=== PATIENT | male | born 2000 | race Caucasian/White ===

== ENCOUNTER 2023-01-20 16:06 | Emergency (ER) | payer BC ==
[~2023-01-20] VITALS: Ht 190 cm; Wt 92.0 kg
--- NOTE | 2023-01-20 16:28 | ED EENT ---
History of Present Illness General Chief Complaint: Ear Problems Stated Complaint: RT EAR PAIN Nursing Triage Note: PT STATES HAS R EAR PAIN WAS SENT TO ED BY [facility], HAS HAD TORDOL SHOT. PT HAS TUBE IN R EAR SEPTEMBER 17 STATES HAD INFECTION THAT COULD NOT BE TREATED W ANTIBIOTIC Source: patient Exam Limitations: no limitations History of Present Illness Date Seen by Provider: Jan 20, 2023 Time Seen by Provider: 16:26 Initial Comments Patient is a 22-year-old male who presents ED with right ear pain. This started last night. Pain is severe. Pain seems to be worse when he lays on the right side or moves his head side to side. He does get some improvement when he is sits up. Was seen at the clinic today and received a Toradol shot and was recommended come to ED if symptoms worsen. Patient had a tube placed in August. History of ear infections. Denies of any drainage, fever, headache, dizziness, visual changes, nausea, vomiting, diarrhea, cough. Patient had surgery on his debridements and nasal septum when he had his right tympanostomy placed in August. Allergies and Home Medications Allergies Coded Allergies: No Known Drug Allergies (Unverified , 01/20/23) Patient Home Medication List Home Medication List Reviewed: Yes Amoxicillin/Potassium Clav (Amox Tr-K Clv 875-125 mg Tab) 875 Mg-125 Mg Tablet, 1 EACH PO BID Prescribed by: LELE OKEEFE on 01/20/231641 Ciprofloxacin HCl/Dexameth (Ciproflox-Dexameth Otic Susp) 0.3 %-0.1 % Drops.susp, 4 DROPS OT BID Prescribed by: LELE OKEEFE on 01/20/231641 Hydrocodone/Acetaminophen (Hydrocodone-Acetamin 5-325 mg) 5 Mg-325 Mg Tablet, 1 TAB PO Q4H PRN for PAIN-MODERATE (5-7) Prescribed by: LELE OKEEFE on 01/20/231641 Review of Systems Review of Systems Constitutional: No chills, No diaphoresis Eyes: Denies Blurred Vision, Denies Drainage, Denies Decreased Acuity Ears: Denies Dizziness; Pain; Denies Clear Discharge, Denies Purulent Discharge Nose: denies clots, denies congestion Mouth: denies clots, denies loose teeth Throat: denies pain, denies swelling, denies neck stiffness Respiratory: No cough, No dyspnea on exertion Cardiovascular: No chest pain Gastrointestinal: No abdominal pain, No diarrhea, No nausea, No vomiting Musculoskeletal: No back pain, No gout All Other Systems Reviewed Negative Unless Noted: Yes Past Nymluyi-Rgjatm-[id number] Hx Patient Social History Tobacco Use?: No Substance use?: No Alcohol Use?: No Pt feels they are or have been: No Immunizations Up To Date First/Initial COVID19 Vaccinat: YES Second COVID19 Vaccination Gil: YES Past Medical History Surgery/Hospitalization HX: R EAR TUBE Physical Exam Vital Signs Vital Signs - First Documented 01/20/23 16:10 Temp 36.5 Pulse 52 Resp 18 B/P (MAP) 145/88 (107) Pulse Ox 100 Height, Weight, BMI Height: '" Weight: lbs. oz. kg; 25.00 BMI Method: General Appearance: WD/WN, no apparent distress Eyes: bilateral eye normal inspection, bilateral eye PERRL, bilateral eye EOMI Ears: right ear other (Fluid behind the right TM. Mild pus. No active drainage through the ear tube. 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[employer] II-XII nml as tested, no motor/sensory deficits, alert, normal mood/affect, oriented x 3 Skin: normal color, warm/dry Progress/Results/Core Measures Results/Orders My Orders Orders - NATALEE MCKNIGHT Hydrocodone/Apap 5/325 Tablet (Hydrocod (01/20/23 16:30) Medications Given in ED Current Medications Medications Dose Ordered Sig/Nhung Route Start Time Stop Time Status Last Admin Dose Admin Acetaminophen/ Hydrocodone Bitart 1 ea ONCE ONCE PO 01/20/23 16:30 01/20/23 16:31 DC 01/20/23 16:40 1 EA Vital Signs/I&O 01/20/23 01/20/23 16:10 16:52 Temp 36.5 36.5 Pulse 52 52 Resp 18 18 B/P (MAP) 145/88 (107) 145/88 Pulse Ox 100 100 Blood Pressure Mean: 107 Departure Communication (PCP) Differential diagnosis, right otitis media, otitis externa, plug tympanostomy. On exam he does have some fluid behind the right TM. Ear plug appears to be intact and within the TM. No drainage noted on the outside. No ear canal swelling or redness. He Does have some white fluid behind the right TM. Patient denies of any runny nose, cough, shortness of breath, neck pain, facial swelling or ear pain. concern for potential otitis media versus a plugged ear tube. Patient took a Toradol shot earlier today at the clinic and was sent to the ED for further evaluation. Patient appears in discomfort. Had a tube placed in August. Patient also had surgery on his nasal septum and turbinates at that time of the tympanostomy. Contacted ENT Dr. Shannon on arrival. States at this time recommended oral Augmentin, eardrops Ciprodex and pain medication. Warm compresses. Can follow-up with him in the office but due to insurance issues he may need to follow-up with his ENT back home in [place]. He is familiar with this case. Discussed these results with patient. May take 2 or 3 days but may eventually resolve itself and drain. If not may need to get the tube changed. This was discussed with patient. Return precaution were discussed concern for a plug tympanostomy vs otitis media. Impression Primary Impression: Otitis media Disposition: 01 HOME, SELF-CARE Condition: Stable Departure-Patient Inst. Decision time for Depature: 16:39 Referrals: NO,LOCAL PHYSICIAN (PCP) Primary Care Physician YURI SHANNON MD Patient Instructions: Ear Infections (Otitis Media) in Adults (DC) Add. Discharge Instructions: Take eardrops as prescribed. Take oral antibiotics as prescribed. Take pain medication as needed. Warm compresses. If continue worsening pain over the next 2 or 3 days suggest following up with Dr. Shannon or your ENT back home. All discharge instructions reviewed with patient and/or family. Voiced understanding. Scripts Hydrocodone/Acetaminophen (Hydrocodone-Acetamin 5-325 mg) 5 Mg-325 Mg Tablet 1 TAB PO Q4H PRN for PAIN-MODERATE (5-7), #10 TAB Prov: NATALEE MCKNIGHT 01/20/23 Amoxicillin/Potassium Clav (Amox Tr-K Clv 875-125 mg Tab) 875 Mg-125 Mg Tablet 1 EACH PO BID for 7 Days, #14 TAB Prov: NATALEE MCKNIGHT 01/20/23 Ciprofloxacin HCl/Dexameth (Ciproflox-Dexameth Otic Susp) 0.3 %-0.1 % Drops.susp 4 DROPS OT BID for 7 Days, #1 EA Prov: NATALEE MCKNIGHT 01/20/23 Work/School Note: School/Childcare Release Date Seen in the Emergency Department: Jan 20, 2023 Time Dismissed from Emergency Department: 16:42 Return to School: Jan 23, 2023 NATALEE MCKNIGHT Jan 20, 2023 16:28
[2023-01-20] MEDS ORDERED: HYDROcodone/ACETAMINOPHEN 5 MG/325 MG TABLET PO ONE (16:30)
[2023-01-20] MEDS ORDERED: ACHD5005 PO (16:42)
[2023-01-20] MEDS ORDERED: CIPR7.5D6 OT (16:42)
[2023-01-20] MEDS ORDERED: AMOX1TAB12 PO (16:42)
[2023-01-20 16:52] VITALS: BP 145/88
== END 2023-01-20 16:53 | disposition home or self-care (01) ==
LOC: ER 16:11
DX: H66.91 Otitis media, unspecified, right ear (principal); Z96.22 Myringotomy tube(s) status
CPT/HCPCS: 99283